=== PATIENT | female | born 1985 | race Two or more races ===

== ENCOUNTER → 2024-03-21 | Outpatient (BNVA) | payer MEDICAID, SELFPAY | END | disposition home or self-care (01) | PROVIDERS: PCP Nurse Practitioner Primary Care; Referring Provider Nurse Practitioner Primary Care; Visit Provider Nurse Practitioner Primary Care | DX: N92.6 Irregular menstruation, unspecified (principal); M54.9 Dorsalgia, unspecified | CPT/HCPCS: 99213 ==

== ENCOUNTER → 2024-04-08 | Outpatient (CLI) | payer MEDICAID, SELFPAY ==
--- NOTE | 2024-04-08 15:51 | XR_ITS ---
Examination: Lumbar spine 3 views Technique one AP lateral coned lateral lower lumbar spine 3 views Exam date and time: April 08, 2024 1650 hours INDICATIONS: Lumbar levoscoliosis 6 degrees No lumbar fracture No spondylolisthesis Mild to moderate disc narrowing L5-S1 Intact pedicles IMPRESSION: Mild to moderate degenerative disc disease L5-S1
== END | disposition home or self-care (01) ==
PROVIDERS: PCP Nurse Practitioner Primary Care; Referring Provider Nurse Practitioner Primary Care; Visit Provider Nurse Practitioner Primary Care
DX: M51.379 Other intervertebral disc degeneration, lumbosacral region without mention of lumbar back pain or lower extremity pain (principal)
CPT/HCPCS: 72100

== ENCOUNTER → 2024-04-12 | Outpatient (BNVA) | payer MEDICAID, SELFPAY | END | disposition home or self-care (01) | PROVIDERS: PCP Nurse Practitioner Family; Referring Provider Nurse Practitioner Family; Visit Provider Nurse Practitioner Family | DX: M54.50 Low back pain, unspecified (principal) | CPT/HCPCS: 99212; G0463 ==

== ENCOUNTER → 2024-05-09 | Outpatient (BNVA) | payer MEDICAID, SELFPAY | END | disposition home or self-care (01) | PROVIDERS: PCP Nurse Practitioner Family; Referring Provider Nurse Practitioner Family; Visit Provider Nurse Practitioner Family | DX: J06.9 Acute upper respiratory infection, unspecified (principal) | CPT/HCPCS: 87804; 87811; 99213 ==

== ENCOUNTER → 2024-06-10 | Outpatient (BNVA) | payer MEDICAID, SELFPAY | END | disposition home or self-care (01) | PROVIDERS: PCP Nurse Practitioner Family; Referring Provider Nurse Practitioner Family; Visit Provider Nurse Practitioner Family | DX: Z23 Encounter for immunization (principal); M54.41 Lumbago with sciatica, right side; M51.360 Other intervertebral disc degeneration, lumbar region with discogenic back pain only | CPT/HCPCS: 90471; 90686; 96372; 99214; J1885 ==

== ENCOUNTER → 2024-06-19 | Outpatient (BNVA) | payer MEDICAID, SELFPAY | END | disposition home or self-care (01) | PROVIDERS: PCP Nurse Practitioner Family; Referring Provider Nurse Practitioner Family; Visit Provider Nurse Practitioner Family | DX: M54.41 Lumbago with sciatica, right side (principal); M51.360 Other intervertebral disc degeneration, lumbar region with discogenic back pain only | CPT/HCPCS: 99212; G0463 ==

== ENCOUNTER → 2024-06-26 | Outpatient (BNVA) | payer MEDICAID, SELFPAY | END | disposition home or self-care (01) | PROVIDERS: PCP Nurse Practitioner Primary Care; Referring Provider Nurse Practitioner Primary Care; Visit Provider Nurse Practitioner Primary Care | DX: M54.41 Lumbago with sciatica, right side (principal); M51.360 Other intervertebral disc degeneration, lumbar region with discogenic back pain only | CPT/HCPCS: 99212; G0463 ==

== ENCOUNTER → 2024-07-10 | Outpatient (BNVA) | payer MEDICAID, SELFPAY | END | disposition home or self-care (01) | PROVIDERS: PCP Nurse Practitioner Primary Care; Referring Provider Nurse Practitioner Primary Care; Visit Provider Nurse Practitioner Primary Care | DX: M54.9 Dorsalgia, unspecified (principal) | CPT/HCPCS: 99214 ==

== ENCOUNTER → 2024-07-30 | Outpatient (BNVA) | payer MEDICAID, SELFPAY | END | disposition home or self-care (01) | PROVIDERS: PCP Nurse Practitioner Primary Care; Referring Provider Nurse Practitioner Primary Care; Visit Provider Nurse Practitioner Primary Care | DX: E78.5 Hyperlipidemia, unspecified (principal); D64.9 Anemia, unspecified | CPT/HCPCS: 99213; J3301 ==

== ENCOUNTER → 2024-08-16 | Outpatient (BNVA) | payer MEDICAID, SELFPAY | END | disposition home or self-care (01) | PROVIDERS: PCP Nurse Practitioner Primary Care; Referring Provider Nurse Practitioner Primary Care; Visit Provider Nurse Practitioner Primary Care | DX: J01.10 Acute frontal sinusitis, unspecified (principal); J30.89 Other allergic rhinitis; N95.9 Unspecified menopausal and perimenopausal disorder | CPT/HCPCS: 99213 ==

== ENCOUNTER → 2024-09-02 | Outpatient (BNVA) | payer MEDICAID, SELFPAY | END | disposition home or self-care (01) | PROVIDERS: PCP Nurse Practitioner Family; Referring Provider Nurse Practitioner Family; Visit Provider Nurse Practitioner Primary Care | DX: J30.89 Other allergic rhinitis (principal); Z01.812 Encounter for preprocedural laboratory examination | CPT/HCPCS: 99214 ==

== ENCOUNTER → 2024-09-10 | Outpatient (BNVA) | payer MEDICAID, SELFPAY | END | disposition home or self-care (01) | PROVIDERS: PCP Nurse Practitioner Primary Care; Referring Provider Nurse Practitioner Primary Care; Visit Provider Nurse Practitioner Primary Care | DX: N30.00 Acute cystitis without hematuria (principal); Z71.2 Person consulting for explanation of examination or test findings; E78.5 Hyperlipidemia, unspecified | CPT/HCPCS: 99212; G0463 ==

== ENCOUNTER → 2024-09-11 | Outpatient (BNVA) | payer MEDICAID, SELFPAY | END | disposition home or self-care (01) | PROVIDERS: PCP Nurse Practitioner Primary Care; Referring Provider Nurse Practitioner Primary Care; Visit Provider Nurse Practitioner Primary Care | DX: Z00.01 Encounter for general adult medical examination with abnormal findings (principal); E78.5 Hyperlipidemia, unspecified; J30.2 Other seasonal allergic rhinitis | CPT/HCPCS: 96372; 99213; J3301 ==

== ENCOUNTER → 2024-09-27 | Outpatient (BNVA) | payer MEDICAID, SELFPAY | END | disposition home or self-care (01) | PROVIDERS: PCP Nurse Practitioner Primary Care; Referring Provider Nurse Practitioner Primary Care; Visit Provider Nurse Practitioner Primary Care | DX: J06.9 Acute upper respiratory infection, unspecified (principal) | CPT/HCPCS: 87804; 87811; 99214 ==

== ENCOUNTER → 2024-10-03 | Outpatient (BNVA) | payer MEDICAID, SELFPAY | END | disposition home or self-care (01) | PROVIDERS: PCP Nurse Practitioner Primary Care; Referring Provider Nurse Practitioner Primary Care; Visit Provider Nurse Practitioner Primary Care | DX: J06.9 Acute upper respiratory infection, unspecified (principal) | CPT/HCPCS: 99212; G0463 ==

== ENCOUNTER → 2024-11-20 | Outpatient (BNVA) | payer MEDICAID, SELFPAY | END | disposition home or self-care (01) | PROVIDERS: PCP Nurse Practitioner Family; Referring Provider Nurse Practitioner Family; Visit Provider Nurse Practitioner Family | DX: N30.01 Acute cystitis with hematuria (principal) | CPT/HCPCS: 81001; 96372; 99215; A4216; J0696 ==

== ENCOUNTER → 2024-11-25 | Outpatient (BNVA) | payer MEDICAID, SELFPAY | END | disposition home or self-care (01) | PROVIDERS: PCP Nurse Practitioner Primary Care; Referring Provider Nurse Practitioner Primary Care; Visit Provider Nurse Practitioner Primary Care | DX: N30.01 Acute cystitis with hematuria (principal) | CPT/HCPCS: 99212; G0463 ==

== ENCOUNTER → 2025-01-24 | Outpatient (BNVA) | payer MEDICAID, SELFPAY | END | disposition home or self-care (01) | PROVIDERS: PCP Nurse Practitioner Primary Care; Referring Provider Nurse Practitioner Primary Care; Visit Provider Nurse Practitioner Primary Care | DX: M51.360 Other intervertebral disc degeneration, lumbar region with discogenic back pain only (principal); N30.00 Acute cystitis without hematuria; G43.909 Migraine, unspecified, not intractable, without status migrainosus | CPT/HCPCS: 81001; 96372; 99214; J1885 ==

== ENCOUNTER → 2025-02-05 | Outpatient (BNVA) | payer MEDICAID, SELFPAY | END | disposition home or self-care (01) | PROVIDERS: PCP Nurse Practitioner Primary Care; Referring Provider Nurse Practitioner Primary Care; Visit Provider Nurse Practitioner Primary Care | DX: G43.E11 Chronic migraine with aura, intractable, with status migrainosus (principal); N30.01 Acute cystitis with hematuria; Z23 Encounter for immunization | CPT/HCPCS: 81001; 90471; 90686; 99214 ==

== ENCOUNTER 2025-02-27 11:30 | Outpatient (RCR) | payer MEDICAID, SELFPAY ==
--- NOTE | 2025-02-05 13:46 | PTNOTE_ITS ---
PT OP Initial Eval Patient Information Outpatient Physical Therapy Treatment Date: 02/05/25 Visit Reasons: lumbago with sciatica Medical Diagnosis: M54.41 M51.360 Treatment Dx #1: LBP with radiculopathy Start of Care: 02/05/25 Date of Onset: 4 months ago Smoking Status Smoking Status: Never smoker Initial Assessment Subjective: Pt is 39 yr old [place]ape verde[place] speaking female who c/o LBP that runs down the R glute into the calf mm. 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 The pain and R LE cramping has interrupted sleep 3 times. Increased pain with prolonged sitting and bending. PMH: migraines Imaging: Xray in EMR of L/s Mild to moderate degenerative disc disease L5-S1? Pt goal: to get rid of the pain Objective: ?Trunk ArOM: ? B SB 50% of normal with pain ? Extension: 20% with pain around L4-5, L5-S1 on R ? Flexion: 5 from floor with LBP ? B rotation: 60% with pain to the R ? TTP: moderate paraspinals L5-S1 on R ? Neuro: R SLR: positive Assessment: ? Pt presents with trunk flexion sensitivity and overlying myofascial pain ? and TTP around L5-S1 consistent with ? lower lumbar disc bulge(s) with radiculopathy. Pt requires skilled therapy in order to decrease ? pain and improve sitting/standing tolerance and has fair rehab potential. Eval ?followed by HEP printout. Short Term and Retirement Goals 1. Ind with HEP ? 2. Improved sitting/standing tolerance to 30 minutes with <=4/10 LBP ? 3. Decreased lower paraspinal TTP from mod to min 4. Improved HH chore tolerance to at least 30 minutes with <=3/10 LBP and no ?increase in LE ssx ? Treatment Plan 1. Manual therapy ? 2. Therex ? 3. Modalities as indicated, moist heat, ice, estim, mechanical traction Frequency and Duration: 2x a week for 12 visits plus the evaluation Certification Dates: 02/05/25 to 05/06/24 Procedure Charges OP PT Eval Mod Complex 30 minutes: Yes
--- NOTE | 2025-02-13 10:26 | PT.ODAYNRPT ---
PT Outpatient Daily Note OP Daily Note Outpatient Physical Therapy Treatment Date: 02/13/25 Visit Reasons: lumbago with sciatica Subjective: Doing HEP with no change in LBP Objective: See F/S for therex MT: STM L/S with flexbar x5' Assessment: Good demo of prone extension progression with low pain in LB Plan: Continue per POC Length of Time (minutes) of Treatment: 30 Minutes Procedure Charges Therapeutic Exercise 30 minutes: Yes
--- NOTE | 2025-02-18 13:50 | PT.ODAYNRPT ---
PT Outpatient Daily Note OP Daily Note Outpatient Physical Therapy Treatment Date: 02/18/25 Visit Reasons: lumbago with sciatica Subjective: Doing HEP with no change in LBP Objective: See F/S for therex MT: STM L/S with flexbar x5' Mechanical traction L/S x7' Assessment: Good demo of prone extension progression with pain at end-range with press-ups Plan: Continue per POC Length of Time (minutes) of Treatment: 30 Minutes Procedure Charges Therapeutic Exercise 30 minutes: Yes
--- NOTE | 2025-02-20 10:59 | PT.ODAYNRPT ---
PT Outpatient Daily Note OP Daily Note Outpatient Physical Therapy Treatment Date: 02/20/25 Visit Reasons: lumbago with sciatica Subjective: No new complaints or concerns. Objective: Please see flow sheet for ther ex list. Assessment: Pt instructed on repeated lumbar extension in standing and encouraged to perform as HEP when she is not able to lay on the floor to perform exercise in prone. Plan: Continue with poC. Length of Time (minutes) of Treatment: 30 Minutes Procedure Charges Therapeutic Exercise 30 minutes: Yes
--- NOTE | 2025-02-25 11:54 | PT.ODAYNRPT ---
PT Outpatient Daily Note OP Daily Note Outpatient Physical Therapy Treatment Date: 02/25/25 Visit Reasons: lumbago with sciatica Subjective: After therapy visits she feels less pain for a few hours until the afternoon Objective: See F/S for therex Mechanical traction L/S x7' Assessment: Good demo of prone extension progression with pain at end-range with press-ups. Plan: Continue per POC Length of Time (minutes) of Treatment: 30 Minutes Procedure Charges Therapeutic Exercise 30 minutes: Yes
--- NOTE | 2025-02-27 12:17 | PT.ODS1RPT ---
PT OP Progress/Discharge Note Date of Service: 02/27/25 Progress Note/DC Note Progress Note/Discharge Note: DC Note Patient Information Visit Reasons: lumbago with sciatica Service Continue Service or Discharge: Discharge Discharge Date: 02/27/25 Status Subjective: Continued LBP that wakes her up at night and pain is still intense at times Objective: See F/S for therex Trunk AROM: FB: 4 from floor with LBP Extension: 30% off ull with pain B rotation: 60% with pain Mechanical traction L/S x7' at 45 lbs Assessment: Pt attended the eval and 5 Rx visits with limited progress with therapy goals due to continued LBP. Pt hasn't met set therapy goals. Thank you for your referrals. PT recommends further diagnostic imaging of L/S such as MRI. Plan: D/C with HEP Procedure Charges Therapeutic Exercise 30 minutes: Yes
== END 2025-02-28 23:59 | disposition home or self-care (01) ==
LOC: CPTX 11:30
PROVIDERS: PCP Nurse Practitioner Family; Referring Provider Nurse Practitioner Family; Visit Provider Nurse Practitioner Family
DX: M51.17 Intervertebral disc disorders with radiculopathy, lumbosacral region (principal)
CPT/HCPCS: 97110; 97162

== ENCOUNTER → 2025-03-06 | Outpatient (BNVA) | payer MEDICAID, SELFPAY | END | disposition home or self-care (01) | PROVIDERS: PCP Nurse Practitioner Primary Care; Referring Provider Nurse Practitioner Primary Care; Visit Provider Nurse Practitioner Primary Care | DX: M54.41 Lumbago with sciatica, right side (principal); G89.29 Other chronic pain; M51.360 Other intervertebral disc degeneration, lumbar region with discogenic back pain only; Z12.31 Encounter for screening mammogram for malignant neoplasm of breast; E66.9 Obesity, unspecified; L02.419 Cutaneous abscess of limb, unspecified; Z23 Encounter for immunization | CPT/HCPCS: 90471; 90715; 99214 ==

== ENCOUNTER → 2025-04-09 | Outpatient (BNVA) | payer MEDICAID, SELFPAY | END | disposition home or self-care (01) | PROVIDERS: PCP Nurse Practitioner Primary Care; Referring Provider Nurse Practitioner Primary Care; Visit Provider Nurse Practitioner Primary Care | DX: Z71.3 Dietary counseling and surveillance (principal); G43.E11 Chronic migraine with aura, intractable, with status migrainosus; E66.9 Obesity, unspecified; Z68.34 Body mass index [BMI] 34.0-34.9, adult | CPT/HCPCS: 99213 ==

== ENCOUNTER → 2025-04-11 | Outpatient (BNVA) | payer MEDICAID, SELFPAY | END | disposition home or self-care (01) | PROVIDERS: PCP Nurse Practitioner Primary Care; Referring Provider Nurse Practitioner Primary Care; Visit Provider Nurse Practitioner Primary Care | DX: E66.9 Obesity, unspecified (principal); E83.51 Hypocalcemia; E78.5 Hyperlipidemia, unspecified | CPT/HCPCS: 99213 ==